=== PATIENT | male | born 2000 | race African-American/Black ===

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

== ENCOUNTER 2025-02-24 18:15 | Emergency (ER) | payer MEDICAID ==
[~2025-02-24] VITALS: Ht 190.5 cm; Wt 91.0 kg
[2025-02-24 18:46] VITALS: TEMP 36.6; O2SAT 100
[2025-02-24] MEDS ORDERED: DIPH28.33 TP (20:28)
[2025-02-24] MEDS ORDERED: CEPH500C2 MT (20:28)
[2025-02-24 20:51] VITALS: BP 150/90; PULSE 61; RESP 16; O2SAT 100
== END 2025-02-24 20:52 | disposition home or self-care (01) ==
LOC: ER 18:15
DX: S81.851A Open bite, right lower leg, initial encounter (principal); L03.115 Cellulitis of right lower limb; Z98.890 Other specified postprocedural states; W57.XXXA Bitten or stung by nonvenomous insect and other nonvenomous arthropods, initial encounter; Y93.89 Activity, other specified; Y92.89 Other specified places as the place of occurrence of the external cause; Y99.8 Other external cause status
CPT/HCPCS: 99283